=== PATIENT | male | born 1985 | race Caucasian/White ===

== ENCOUNTER 2016-11-28 01:28 | Emergency (ER) | payer OTHER ==
[~2016-11-28 01:28] MED LIST: DIAZ5TAB PO; Z.0.NO CURRENT MEDS
[2016-11-28 01:40] VITALS: BP 161/99; PULSE 118; RESP 15; TEMP 98.9; O2SAT 96
[2016-11-28] MEDS ORDERED: BUSP5TAB PO (01:53)
[2016-11-28] MEDS ORDERED: TRAZ100T4 PO (01:53)
[2016-11-28] MEDS ORDERED: ESCI10TA PO (01:53)
[2016-11-28] MEDS ORDERED: DIAZ2TAB PO (01:53)
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
== END 2016-11-28 02:17 | disposition home or self-care (01) ==
LOC: NEPK 01:28
DX: S81.812A Laceration without foreign body, left lower leg, initial encounter (principal); W26.8XXA Contact with other sharp object(s), not elsewhere classified, initial encounter; Y93.E8 Activity, other personal hygiene; Y92.009 Unspecified place in unspecified non-institutional (private) residence as the place of occurrence of the external cause; Y99.8 Other external cause status
CPT/HCPCS: 12002

== ENCOUNTER 2016-12-15 04:18 | Emergency (ER) | payer OTHER ==
[~2016-12-15] VITALS: Ht 182.9 cm; Wt 150.0 kg
[~2016-12-15 04:18] MED LIST changes: +BUSP5TAB PO; +DIAZ2TAB PO; -DIAZ5TAB PO; +ESCI10TA PO; +TRAZ100T4 PO; -Z.0.NO CURRENT MEDS
[2016-12-15 04:35] VITALS: BP 154/99; PULSE 98; RESP 20; TEMP 98.5; O2SAT 98
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
== END 2016-12-15 05:36 | disposition home or self-care (01) ==
LOC: NEPC 04:18
DX: T75.89XA Other specified effects of external causes, initial encounter (principal); Z77.21 Contact with and (suspected) exposure to potentially hazardous body fluids; S50.312A Abrasion of left elbow, initial encounter; H91.92 Unspecified hearing loss, left ear; Z86.59 Personal history of other mental and behavioral disorders; X58.XXXA Exposure to other specified factors, initial encounter; Y99.0 Civilian activity done for income or pay
CPT/HCPCS: 99283